=== PATIENT | male | born 2000 | race Two or more races ===

== ENCOUNTER 2024-05-26 01:46 | Emergency (ER) | payer MEDICAID, SELFPAY ==
[2024-05-26 01:48] VITALS: BMI 59.9
[2024-05-26 02:21] VITALS: BP 152/82; PULSE 105; RESP 17; TEMP 37; O2SAT 95
--- NOTE | 2024-05-26 02:29 | XR_ITS ---
Examination: Wrist, right 3 views Technique: Wrist AP, oblique, lateral 3 views Date and time of exam: May 26, 2024 0247 hours INDICATIONS: Injury to the wrist today, wrist pain. FINDINGS: Acute severely comminuted fractures base fifth metacarpal, up to 4 mm offset of the main fracture fragments Radius ulna appear intact as well as carpal bones IMPRESSION: Acute comminuted fractures base fifth metacarpal
--- NOTE | 2024-05-26 02:29 | XR_ITS ---
Examination: Hand, right 3 views Technique: Hand AP, oblique, lateral 3 views Date and time of exam: May 26, 2024 0244 hours INDICATIONS: Injury to the hand today, hand pain. FINDINGS: Acute comminuted displaced fractures involving the base of the fifth metacarpal, up to 4 mm offset of the main fracture fragments No opaque foreign bodies IMPRESSION: Comminuted fractures bases fifth metacarpal
--- NOTE | 2024-05-26 05:44 | PD.EDHAND ---
Upper Extremity Injury RME/HPI General Chief Complaint: Hand/Wrist Problems Stated Complaint: right hand pain, can move it Time Seen by Provider: 05/26/24 02:29 Arrival date/time: 05/26/24 01:46 23M with no significant PMH presents to ED with R hand pain. Patient admits he is intoxicated and doesn't know what happened. Limitations: no limitations Related Data Previous Rx's ?Medication ?Instructions ?Recorded hydrocodone 5 mg-acetaminophen 325 1 tab PO TID PRN pain #20 tabs 05/21/22 mg tablet ondansetron HCl 4 mg tablet 4 mg PO TID #14 tabs 05/21/22 Allergies Allergy/AdvReac Type Severity Reaction Status Date / Time No Known Allergies Allergy Verified 05/26/24 01:50 Review of Systems Review of Systems Systems Reviewed: All systems reviewed, normal except as documented Constitutional Constitutional: Reports system reviewed and no additional complaints, except as documented, Denies fever(s) and Denies headache(s) ENT Ears, Nose, Mouth, and Throat: Denies disequilibrium and Denies headache(s) Cardiovascular Cardiovascular: Reports system reviewed and no additional complaints, except as documented, Denies chest pain and Denies dyspnea Respiratory Respiratory: Reports system reviewed and no additional complaints, except as documented, Denies cough and Denies dyspnea Gastrointestinal Gastrointestinal: Reports system reviewed and no additional complaints, except as documented, Denies abdominal pain, Denies nausea and Denies vomiting Musculoskeletal Musculoskeletal: Reports as per HPI and Reports arthralgias Neurologic Neurologic: Reports system reviewed and no additional complaints, except as documented, Denies confusion, Denies disequilibrium and Denies headache(s) Psychiatric Psychiatric: Denies confusion Past Medical History Past Medical History CARDIAC: Negative Congestive Heart Failure RESPIRATORY: Negative Chronic Obstructive Pulmonary Disease (COPD) GENITOURINARY: Negative Renal Disease ENDOCRINE: Negative Diabetes Mellitus Type 1 or Diabetes Mellitus Type 2 Social History SMOKING STATUS: Current every day smoker ED Exam General Limitations: Present no limitations General appearance: Present in no apparent distress and appears intoxicated Head Head exam: Present atraumatic Eye Eye exam: Present normal appearance, PERRL and EOMI ENT ENT exam: Present normal exam, normal oropharynx and mucous membranes moist Neck Neck exam: Present normal inspection, full ROM and trachea midline Chest Chest inspection: Present normal inspection and symmetric chest wall rise Respiratory Respiratory exam: Present normal lung sounds bilaterally Cardiovascular Cardiovascular exam: Present regular rate, normal rhythm and normal heart sounds Abdominal Exam Abdominal exam: Present soft and normal bowel sounds Extremities Exam Extremities exam: Present full ROM Expanded Upper Extremity Exam Hand exam: Present full ROM (R) and tenderness Back Exam Back exam: Present normal inspection and full ROM Neurological Exam Neurological exam: Present alert, oriented X3 and CN II-XII intact Psychiatric Psychiatric exam: Present normal affect and normal mood Skin Skin exam: Present warm, dry, intact and normal color Course Quality Measures none Orders Category Date Time Status Splint / Immobilizer STAT Care 05/26/24 03:28 Active XR hand comp RT min 3V Stat Exams 05/26/24 02:29 Taken XR wrist comp RT min 3V Stat Exams 05/26/24 02:29 Taken Vital Signs Vital signs: Vital Signs Temperature 98.6 F 05/26/24 02:21 Pulse Rate 105 H 05/26/24 02:21 Respiratory Rate 17 05/26/24 02:21 Blood Pressure 152/82 H 05/26/24 02:21 Pulse Oximetry (%) 95 05/26/24 02:21 Oxygen Delivery Method Room Air 05/26/24 02:21 O2 at 95% on RA and WNLs Extremity Injury MDM Narrative MDM Narrative:: 23M with no significant PMH presents to ED with R hand pain. Patient admits he is intoxicated and doesn't know what happened. Physical exam reveals R hand tenderness. ROM mostly intact. Patient is afebrile, calm, but intoxicated. XR reveals 5th metacarpal base fx. 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 Toure on Wednesday at 3 PM. Patient data External records reviewed:: [facility] previous records Clinical information provided by:: patient Social determinants that could affect healthcare access:: none Patient has the following chronic illnesses:: none How is presenting disease/condition affected by chronic disease/condition?: no chronic disease Evaluation data The following diagnostics were reviewed and interpreted by me:: radiology exam(s) Lab and/or radiology exams considered but not ordered:: ordered Interpretation Summary: above Medications / Prescriptions Medications or Prescriptions considered but not ordered:: not ordered Medication administrations:: n/a Consultations Consultation(s) initiated? (list below): No Diagnosis Upper Extremity Injury Differential Diagnosis: sprain and strain of wrist, fracture of wrist, finger sprain, dislocation of finger, Colles' fracture and fracture of hand Most likely diagnosis given after review of the tests above:: hand fx Admission Indicated Admission indicated?: not indicated Admission Request Was there a request for admission?: No Disposition Plan Disposition Plan: Discharge Discharge Attestation Discharge Attestation: The patient and all family members were given an opportunity to ask questions and understood the discharge instructions. Discharge instructions specifically effects, indications for sooner follow up or return to the emergency department, and the expected course of current diagnosis. Patient condition: Stable Discharge Plan Plan Patient Disposition: HOME (Self Care) Disposition Comment: Stable Prescriptions/Referrals Prescriptions/Med Rec: No Action hydrocodone-acetaminophen 5-325 mg tablet 1 tab PO TID MDD 3 PRN (Reason: pain) Qty: 20 0RF ondansetron HCl 4 mg tablet 4 mg PO TID Qty: 14 0RF Referrals: Austin Toure MD [Physician] - 05/29/24 3:00 pm Problem List Clinical Impression: Fracture of hand Patient/Caregiver Discharge Instructions Additional Instructions: Please follow-up with PCP within 24-48 hours and return immediately if symptoms worsen. Patient was told to go to scheduled ortho appointment with Dr. Toure on Wednesday at 3 PM. Print Language: Latvian Stand Alone Forms: Work/School Release, Patient Portal Info Letter DEL/FERNANDO Supervising Physician XAVIER Supervising Physician: Dr. Penn
== END 2024-05-26 03:35 | disposition home or self-care (01) ==
PROVIDERS: Emergency Provider Emergency Medicine; PCP Family Medicine
DX: S62.316A Displaced fracture of base of fifth metacarpal bone, right hand, initial encounter for closed fracture (principal); X58.XXXA Exposure to other specified factors, initial encounter
CPT/HCPCS: 29125; 73110; 73130; 99283; A4565